=== PATIENT | female | born 2000 | race Caucasian/White ===

== ENCOUNTER 2018-01-25 12:48 | Emergency (ER) | payer OTHER ==
--- NOTE | 2018-01-25 13:03 | ER Document Report ---
ED GI/ - General Mode of Arrival: Ambulatory Information source: Patient - General Chief Complaint: Flank Pain Stated Complaint: LEFT FLANK PAIN Time Seen by Provider: 01/25/18 12:57 Notes: Patient is a 17-year-old female who presents to emergency department today with complaints of left-sided flank pain and dysuria. Patient states she has a history of UTIs in the past but "not as bad as this". Patient denies any history of kidney stones. Patient denies fevers or chills. (BRADEN CARRANZA) - Related Data Allergies/Adverse Reactions: peanut Allergy (Verified 01/25/18 13:03) Past Medical History - General Information source: Patient - Social History Smoking Status: Never Smoker Cigarette use (# per day): No Frequency of alcohol use: None Drug Abuse: None Lives with: Family Family History: Reviewed & Not Pertinent - Medical History Medical History: Negative Surgical Hx: Negative Review of Systems - Review of Systems Constitutional: denies: Chills, Fever EENT: No symptoms reported Cardiovascular: No symptoms reported Respiratory: No symptoms reported Gastrointestinal: No symptoms reported Genitourinary: See HPI, Burning, Dysuria Female Genitourinary: No symptoms reported Musculoskeletal: No symptoms reported Skin: No symptoms reported Hematologic/Lymphatic: No symptoms reported Neurological/Psychological: No symptoms reported -: Yes All other systems reviewed and negative Physical Exam - Vital signs Vitals: Temp Pulse Resp BP Pulse Ox 98.7 F 80 16 142/87 H 100 01/25/18 12:52 01/25/18 12:52 01/25/18 12:52 01/25/18 12:52 01/25/18 12:52 - Notes Notes: Physical Exam: General: Alert, appears well. HEENT: Normocephalic. Atraumatic. PERRLA. Extraocular movements intact. Oropharynx clear. Neck: Supple. Respiratory: No respiratory distress. Abdominal: Normal Inspection. No distension. Extremities: Moves all four extremities. Neurological: Normal cognition. AAOx4. Normal speech. Psychological: Normal affect. Normal Mood. Skin: Warm. Dry. Normal color. (BRADEN CARRANZA) Course - Re-evaluation Re-evalutation: 01/25/18 13:30 Patient urine shows signs of infection we placed on Keflex and provide nausea medications. Return precautions provided. Vitals stable (LONG,CHASE H) - Vital Signs Vital signs: Temp Pulse Resp BP Pulse Ox 98.2 F 86 16 118/75 99 01/25/18 14:09 01/25/18 14:09 01/25/18 12:52 01/25/18 14:09 01/25/18 14:09 - Laboratory Laboratory results interpreted by me: 01/25/18 13:00 Urine Protein 30 H Urine Blood SMALL H Urine Nitrite POSITIVE H Urine Urobilinogen 4.0 H Discharge - Discharge Clinical Impression: Urinary tract infection Qualifiers: Urinary tract infection type: site unspecified Hematuria presence: with hematuria Qualified Code(s): N39.0 - Urinary tract infection, site not specified Condition: Good Disposition: HOME, SELF-CARE Instructions: Cephalexin ([facility]), Urinary Tract Infection, Child ([facility]) Prescriptions: Cephalexin [Keflex] 500 mg PO QID #28 capsule Ondansetron HCl [Zofran 4 mg Tablet] 1 tab PO ASDIR PRN #10 tablet PRN Reason: Scribe Attestation: 01/26/18 15:27 I personally performed the services described documentation, reviewed and edited the documentation which was dictated to describe my presence, and it accurately records my words and actions. (CHASE THACKER) Scribe Documentation - Scribe Written by David:: David Rodas, 01/25/2018 1303 acting as scribe for :: Chandrakant
[2018-01-25] MEDS ORDERED: ONDANSETRON 4 MG TAB.RAPDIS PO ONE (13:06)
[2018-01-25 13:24] LABS: APPEARANCE,URINE CLEAR; BILIRUBIN,URINE NEGATIVE (NEGATIVE); COLOR,URINE AMBER; GLUCOSE, URINE NEGATIVE (NEGATIVE); KETONES,URINE NEGATIVE (NEGATIVE); LEUKOCYTE ESTERASE,URINE NEGATIVE (NEGATIVE); NITRITE,URINE POSITIVE (NEGATIVE); PROTEIN,URINE 30 mg/dL (NEGATIVE); URINE SPECIFIC GRAVITY 1.017
[2018-01-25 14:19] VITALS: BP 118/75
== END 2018-01-25 15:08 | disposition home or self-care (01) ==
LOC: ER 12:48
DX: N39.0 Urinary tract infection, site not specified (principal); R31.9 Hematuria, unspecified; Z91.010 Allergy to peanuts
CPT/HCPCS: 99284; 81025; 81001; S0119